=== PATIENT | male | born 1995 | race Caucasian/White ===

== ENCOUNTER 2018-06-10 00:20 | Emergency (ER) | payer OTHER ==
[~2018-06-10] VITALS: Ht 170.2 cm; Wt 84.1 kg
[2018-06-10 00:27] VITALS: BP 129/64
--- NOTE | 2018-06-10 01:47 | NUR ---
PT BIB SELF C/O LEFT LEG PAIN S/P "GETTING OUT OF CAR". NO BRUISING OR SWELLING NOTED TO LEFT LEG. +CMS, NO OPEN SKIN NOTED. PT LAYING IN BED, IN NO APPARENT DISTRESS, SIDE RAIL UP X1, COMFORT NEEDS MET AT THIS TIME. 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 NO PMH, NKDA
--- NOTE | 2018-06-10 02:21 | NUR ---
ER MD AT BEDSIDE EVALUATING PATIENT.
[2018-06-10] MEDS ORDERED: KETOROLAC 60 MG/2 ML VIAL IM ONE (02:25)
[2018-06-10 03:15] VITALS: BP 129/64
--- NOTE | 2018-06-10 03:15 | NUR ---
Patient discharged with v/s stable. Written and verbal after care instructions given and explained. Patient alert, oriented and verbalized understanding of instructions. Ambulatory with steady gait. All questions addressed prior to discharge. ID band removed. Patient advised to follow up with PMD. Rx of Motrin and norco given. Patient educated on indication of medication including possible reaction and side effects. Opportunity to ask questions provided and answered.
== END 2018-06-10 03:15 | disposition home or self-care (01) ==
LOC: MED 00:20
DX: M25.562 Pain in left knee (principal)
CPT/HCPCS: 96372; 99283; J1885

== ENCOUNTER 2019-04-01 19:29 | Emergency (ER) | payer OTHER ==
[~2019-04-01] VITALS: Ht 170.2 cm; Wt 90.7 kg
[2019-04-01 19:42] VITALS: BP 131/74
--- NOTE | 2019-04-01 19:49 | NUR ---
PT AMBULATED TO ER BED 06
--- NOTE | 2019-04-01 20:00 | NUR ---
PT BIB GIRLFRIEND C/O HEAMTURIA AND BLOOD IN SPERM. PT STATES HIS GIRLFRIEND DID A URINE ANALYSIS AT HER SCHOOL WHICH TESTED POSITIVE FOR URINE, PT STATES HE HAS NEVER SEEN BLOOD IN HIS URINE, WAS TOLD TO FOLLOW UP W/ PRIMARY PROVIDER BY SCHOOL INSTRUCTOR, PT WENT TO URGENT CARE AND WAS ADVISED TO BE SEEN IN THE ER. PT STATES HE HAD BRIGHT RED BLOOD IN A CONDOM AFTER INTERCOURSE X1 MONTH AGO. PT STATES 10/10 SHARP LOWER BACK PAIN X3 YEARS; 7/10 MEATUS SHARP PAIN X3 DAYS. DENIES TRAUMA OR INJURY. DENIES DYSURIA, ITCHING OR DISCHARGE. DENIES FEVER, CHILLS OR N/V/D. PT IN GOWN, IN BED; BED IN LOWER LOCKED POSITION. PENDING ER MD EVALUATION. PMH: DENIES RX: DENIES
[2019-04-01 20:08] LABS: APPEARANCE,URINE CLEAR (CLEAR); BILIRUBIN,URINE 1+ (NEGATIVE); BLOOD, URINE TRACE-L (NEGATIVE); COLOR,URINE YELLOW (YELLOW); LEUKOCYTE ESTERASE ,URINE TRACE (NEGATIVE); NITRITE, URINE NEGATIVE (NEGATIVE); UGLUCOSE NEGATIVE (NEGATIVE)
[2019-04-01 20:15] LABS: RBC,URINE 0-5 /HPF (0-5)
[2019-04-01] MEDS ORDERED: KETOROLAC 60 MG/2 ML VIAL IM ONE (20:40)
[2019-04-01] MEDS ORDERED: AZITHROMYCIN 250 MG TAB PO ONE (21:25)
[2019-04-01] MEDS ORDERED: cefTRIAXone 250 MG in LIDOCAINE MPF 1% - 5 mL VIAL 0.9 ML IM ONE (21:25)
[2019-04-01 22:12] VITALS: BP 138/71
--- NOTE | 2019-04-01 22:12 | NUR ---
DISCHARGE INSTRUCTIONS GIVEN TO PT. WITH VSS. RX OF SENOKOT GIVEN. SIDE EFFECTS EXPLAINED. INSTURCTED TO INCREASE WATER INTAKE AND FIBER. INSTRUCTED TO F/U WITH PCP AND WHEN TO RETURN TO ER. PT VERBALLIZED UNDERSTANDING OF DC INSTRUCTIONS. ALL QUESTIONS ANSWERED.
== END 2019-04-01 22:12 | disposition home or self-care (01) ==
LOC: MED 19:29
DX: N39.0 Urinary tract infection, site not specified (principal); R36.1 Hematospermia; K59.00 Constipation, unspecified
CPT/HCPCS: 74176; 81001; 87086; 96372; 99284; J0696; J1885; J2001